=== PATIENT | female | born 1925 | race Caucasian/White ===

== ENCOUNTER 2016-12-27 16:19 | Inpatient (IN) | payer MEDICARE, OTHER ==
[2016-12-27] MEDS ORDERED: IPRATROPIUM/ALBUTEROL 3 ML NEB INH STA (16:46)
[2016-12-27] MEDS ORDERED: IPRATROPIUM/ALBUTEROL 3 ML NEB INH ONE (16:54)
[2016-12-27] MEDS ORDERED: SODIUM CHLORIDE 0.9% 1,000 ML IV ONE (16:58)
[2016-12-27] MEDS ORDERED: AZITHROMYCIN INJ 500 MG in SODIUM CHLORIDE 0.9% 250 ML IV STA (17:28)
[2016-12-27] MEDS ORDERED: cefTRIAXone 1 GM in SODIUM CHLORIDE 0.9% MINIBAG 100 ML IV STA (17:28)
[2016-12-27] MEDS ORDERED: cefTRIAXone 1 GM VIAL ONE (17:42)
[2016-12-27] MEDS ORDERED: guaiFENesin/DEXTROMETHORPHAN 10 ML UDC PO SCH (18:00)
[2016-12-27] MEDS ORDERED: guaiFENesin/DEXTROMETHORPHAN 10 ML UDC ONE (18:09)
[2016-12-27] MEDS ORDERED: ACETAMINOPHEN 325 MG TABLET PO STA (19:27)
[2016-12-27] MEDS ORDERED: ACETAMINOPHEN 325 MG TABLET PO ONE (19:28)
[2016-12-27] MEDS ORDERED: ONDANSETRON ODT 4 MG TABLET TL PRN (19:37)
[2016-12-27] MEDS ORDERED: ACETAMINOPHEN 325 MG TABLET PO PRN (19:37)
[2016-12-27] MEDS ORDERED: IBUPROFEN 400 MG TABLET PO PRN (19:37)
[2016-12-27] MEDS ORDERED: SODIUM CHLORIDE FLUSH 0.9% 10 ML SYRINGE IVP PRN (19:37)
[2016-12-27] MEDS ORDERED: ONDANSETRON 4 MG/2 ML VIAL IVP PRN (19:37)
[2016-12-27] MEDS: SODIUM CHLORIDE 0.9% 1,000 ML IV SCH (22:11)
[2016-12-27] MEDS: SODIUM CHLORIDE FLUSH 0.9% 10 ML SYRINGE IVP SCH (22:11)
[2016-12-28] MEDS: guaiFENesin/DEXTROMETHORPHAN 10 ML UDC PO PRN ×4 (00:13→18:42)
[2016-12-28] MEDS: BENZONATATE 100 MG CAPSULE PO PRN ×3 (03:00→22:23)
[2016-12-28] MEDS: oxyCODONE 5 MG TABLET PO PRN (06:21)
[2016-12-28] MEDS: SODIUM CHLORIDE 0.9% 1,000 ML IV SCH (06:21)
[2016-12-28] MEDS: POLYETHYLENE GLYCOL 3350 17 GM PACKET PO SCH (09:23)
[2016-12-28] MEDS: SODIUM CHLORIDE FLUSH 0.9% 10 ML SYRINGE IVP SCH ×3 (14:55→22:23)
[2016-12-28] MEDS: cefTRIAXone 2 GM in SODIUM CHLORIDE 0.9% MINIBAG 100 ML IV SCH (17:28)
[2016-12-28] MEDS: AZITHROMYCIN INJ 500 MG in SODIUM CHLORIDE 0.9% 250 ML IV SCH (18:36)
[2016-12-28] MEDS: methylPREDNISolone SUCCINATE 40 MG/ML VIAL IVP SCH (22:23)
[2016-12-28] MEDS: LISINOPRIL 5 MG TABLET PO SCH (23:11)
[2016-12-29] MEDS: BENZONATATE 100 MG CAPSULE PO PRN ×2 (06:36→12:44)
[2016-12-29] MEDS: methylPREDNISolone SUCCINATE 40 MG/ML VIAL IVP SCH ×3 (06:37→21:21)
[2016-12-29] MEDS: SODIUM CHLORIDE FLUSH 0.9% 10 ML SYRINGE IVP SCH ×3 (06:37→21:21)
[2016-12-29] MEDS: LEVALBUTEROL 1.25 MG INH PRN (07:30)
[2016-12-29] MEDS ORDERED: SODIUM CHLORIDE INHALATION 3 ML NEB ONE (07:30)
[2016-12-29] MEDS: DOCUSATE SODIUM 250 MG CAPSULE PO SCH (08:04)
[2016-12-29] MEDS: LISINOPRIL 5 MG TABLET PO SCH (08:04)
[2016-12-29] MEDS: SENNA 8.6 MG TABLET PO SCH (08:05)
[2016-12-29] MEDS: POLYETHYLENE GLYCOL 3350 17 GM PACKET PO SCH (08:05)
[2016-12-29] MEDS: guaiFENesin/DEXTROMETHORPHAN 10 ML UDC PO PRN (12:44)
[2016-12-29] MEDS: cefTRIAXone 2 GM in SODIUM CHLORIDE 0.9% MINIBAG 100 ML IV SCH (16:42)
[2016-12-29] MEDS: AZITHROMYCIN INJ 500 MG in SODIUM CHLORIDE 0.9% 250 ML IV SCH (17:55)
[2016-12-30] MEDS: methylPREDNISolone SUCCINATE 40 MG/ML VIAL IVP SCH ×3 (06:33→21:42)
[2016-12-30] MEDS: SODIUM CHLORIDE FLUSH 0.9% 10 ML SYRINGE IVP SCH ×3 (06:34→21:42)
[2016-12-30] MEDS: LISINOPRIL 5 MG TABLET PO SCH (09:42)
[2016-12-30] MEDS: POLYETHYLENE GLYCOL 3350 17 GM PACKET PO SCH (09:44)
[2016-12-30] MEDS: SENNA 8.6 MG TABLET PO SCH (09:44)
[2016-12-30] MEDS: DOCUSATE SODIUM 250 MG CAPSULE PO SCH (09:44)
[2016-12-30] MEDS ORDERED: SODIUM CHLORIDE INHALATION 3 ML NEB ONE (13:07)
[2016-12-30] MEDS: LEVALBUTEROL 1.25 MG INH PRN (13:17)
[2016-12-30] MEDS: cefTRIAXone 2 GM in SODIUM CHLORIDE 0.9% MINIBAG 100 ML IV SCH (17:50)
[2016-12-30] MEDS: AZITHROMYCIN INJ 500 MG in SODIUM CHLORIDE 0.9% 250 ML IV SCH (17:55)
[2016-12-30] MEDS: guaiFENesin/DEXTROMETHORPHAN 10 ML UDC PO PRN (19:27)
[2016-12-30] MEDS: oxyCODONE 5 MG TABLET PO PRN (19:28)
[2016-12-31] MEDS: BENZONATATE 100 MG CAPSULE PO PRN (01:34)
[2016-12-31] MEDS: methylPREDNISolone SUCCINATE 40 MG/ML VIAL IVP SCH (06:50)
[2016-12-31] MEDS: SODIUM CHLORIDE FLUSH 0.9% 10 ML SYRINGE IVP SCH ×3 (06:51→20:06)
[2016-12-31] MEDS: DOCUSATE SODIUM 250 MG CAPSULE PO SCH (08:23)
[2016-12-31] MEDS: SENNA 8.6 MG TABLET PO SCH (08:24)
[2016-12-31] MEDS: POLYETHYLENE GLYCOL 3350 17 GM PACKET PO SCH (08:24)
[2016-12-31] MEDS: LISINOPRIL 5 MG TABLET PO SCH (08:40)
[2016-12-31] MEDS: guaiFENesin/DEXTROMETHORPHAN 10 ML UDC PO PRN ×2 (08:41→17:30)
[2016-12-31] MEDS ORDERED: methylPREDNISolone SUCCINATE 40 MG/ML VIAL IVP SCH (09:00)
[2016-12-31] MEDS: AZITHROMYCIN INJ 500 MG in SODIUM CHLORIDE 0.9% 250 ML IV SCH (17:30)
[2016-12-31] MEDS: oxyCODONE 5 MG TABLET PO PRN (17:34)
[2016-12-31] MEDS: predniSONE 20 MG TABLET PO SCH (20:05)
[2017-01-01] MEDS: SODIUM CHLORIDE FLUSH 0.9% 10 ML SYRINGE IVP SCH (06:00)
[2017-01-01] MEDS ORDERED: LISINOPRIL 5 MG TABLET PO SCH (09:00)
[2017-01-01] MEDS: POLYETHYLENE GLYCOL 3350 17 GM PACKET PO SCH (09:31)
[2017-01-01] MEDS: DOCUSATE SODIUM 250 MG CAPSULE PO SCH (09:31)
[2017-01-01] MEDS: SENNA 8.6 MG TABLET PO SCH (09:32)
[2017-01-01] MEDS: predniSONE 20 MG TABLET PO SCH (09:32)
[2017-01-01] MEDS: BENZONATATE 100 MG CAPSULE PO PRN (09:42)
[2017-01-01] MEDS: guaiFENesin/DEXTROMETHORPHAN 10 ML UDC PO PRN (09:42)
== END 2017-01-01 11:50 | disposition home or self-care (01) | DRG 190 ==
DX: J44.0 Chronic obstructive pulmonary disease with (acute) lower respiratory infection (principal); J44.9 Chronic obstructive pulmonary disease, unspecified; J18.9 Pneumonia, unspecified organism; E46 Unspecified protein-calorie malnutrition; B02.29 Other postherpetic nervous system involvement; D61.818 Other pancytopenia; D69.3 Immune thrombocytopenic purpura; J44.1 Chronic obstructive pulmonary disease with (acute) exacerbation; J45.909 Unspecified asthma, uncomplicated; Z87.891 Personal history of nicotine dependence; F32.9 Major depressive disorder, single episode, unspecified; Z85.72 Personal history of non-Hodgkin lymphomas; D63.1 Anemia in chronic kidney disease; N18.3 Chronic kidney disease, stage 3 (moderate); D50.9 Iron deficiency anemia, unspecified; Z66 Do not resuscitate; Z82.49 Family history of ischemic heart disease and other diseases of the circulatory system; Z80.9 Family history of malignant neoplasm, unspecified; F41.9 Anxiety disorder, unspecified; E86.0 Dehydration; Z68.23 Body mass index [BMI] 23.0-23.9, adult